=== PATIENT | male | born 2000 | race Two or more races ===

== ENCOUNTER 2023-08-15 17:17 | Inpatient (IN) | payer MEDICAID ==
[~2023-08-15] VITALS: Ht 180.3 cm; Wt 79.4 kg
[2023-08-15 17:28] VITALS: O2SAT 100
[2023-08-15 19:44] LABS: BASOPHILS % (AUTO) 0.3 % (0.0-2.0); EOSINOPHILS % (AUTO) 0.4 % (0.0-6.0); HEMATOCRIT 41 % (39-51); HEMOGLOBIN 14.3 g/dL (13.5-17.5); LYMPHOCYTES # (AUTO) 2.5 K/uL (0.8-4.8); LYMPHOCYTES % (AUTO) 25.8 % (20.0-44.0); MEAN CORPUSCULAR HEMOGLOBIN 30 PG (26.0-33.0); MEAN CORPUSCULAR HGB CONC 35 g/dl (31.0-36.0); MEAN CORPUSCULAR VOLUME 84 fL (80-96); MONOCYTES # (AUTO) 0.8 K/uL (0.1-1.30); MONOCYTES % (AUTO) 8.5 % (2.0-12.0); NEUTROPHILS # (AUTO) 6.2 K/uL (1.8-8.9); PLATELET COUNT (AUTO) 242 K/uL (150-450); RED BLOOD CELL COUNT(AUTO) 4.81 MIL/uL (4.5-6.0); WHITE BLOOD COUNT (AUTO) 9.6 K/uL (4.3-11.0)
[2023-08-15] MEDS ORDERED: IOHEXOL-300 100 ML VIAL IV ONE (19:56)
[2023-08-15] MEDS ORDERED: IV NS 0.9% 250 ML IV ONE (19:56)
[2023-08-15] MEDS ORDERED: CT SWABBABLE VALVE TRANS SET 1 EA INFUS.SET MC ONE (19:56)
[2023-08-15 20:03] LABS: CALCIUM, SERUM 8.9 mg/dL (8.5-10.1); POTASSIUM 3.4 mmol/L (3.5-5.1)
[2023-08-15] MEDS ORDERED: CEFEPIME 1 GM VIAL ONE (21:13)
[2023-08-15] MEDS ORDERED: IBUPROFEN 400 MG TABLET ONE (21:14)
[2023-08-15] MEDS ORDERED: VANCOMYCIN 1 GM /D5W 250 ML PB IV ONE (21:14)
[2023-08-15] MEDS: VANCOMYCIN 1 GM in IV D5W 250 ML IV ONE (21:21)
[2023-08-15] MEDS: IBUPROFEN 800 MG TABLET PO PRN (21:21)
[2023-08-15] MEDS: CEFEPIME 1 GM in IV D5W 50 ML IV ONE (21:21)
[2023-08-15] MEDS ORDERED: ZOLPIDEM TARTRATE 5 MG TABLET PO PRN (22:00)
[2023-08-15] MEDS ORDERED: ONDANSETRON HCL/PF 4 MG/2 ML VIAL IVP PRN (22:00)
[2023-08-15] MEDS ORDERED: CEFEPIME 1 GM in IV D5W 50 ML IV SCH (22:00)
[2023-08-15] MEDS ORDERED: MAG HYDROX/AL HYDROX/SIMETH 30 ML UDC PO PRN (22:00)
[2023-08-15] MEDS ORDERED: Z GUARD REMEDY 4 OZ OINT TP PRN (22:00)
[2023-08-15] MEDS ORDERED: MAGNESIUM HYDROXIDE 30 ML UDC PO PRN (22:00)
[2023-08-15 23:13] VITALS: BP 134/63; TEMP 98.4; O2SAT 99
[2023-08-16 06:25] LABS: BASOPHILS % (AUTO) 0.3 % (0.0-2.0); EOSINOPHILS # (AUTO) 0.1 K/uL (0.0-0.7); EOSINOPHILS % (AUTO) 0.9 % (0.0-6.0); HEMATOCRIT 42 % (39-51); HEMOGLOBIN 14.9 g/dL (13.5-17.5); LYMPHOCYTES # (AUTO) 2.4 K/uL (0.8-4.8); LYMPHOCYTES % (AUTO) 27.9 % (20.0-44.0); MEAN CORPUSCULAR HEMOGLOBIN 30 PG (26.0-33.0); MEAN CORPUSCULAR HGB CONC 36 g/dl (31.0-36.0); MEAN CORPUSCULAR VOLUME 84 fL (80-96); MONOCYTES # (AUTO) 0.8 K/uL (0.1-1.30); MONOCYTES % (AUTO) 8.8 % (2.0-12.0); NEUTROPHILS # (AUTO) 5.4 K/uL (1.8-8.9); NEUTROPHILS % (AUTO) 62.1 % (43.0-81.0); PLATELET COUNT (AUTO) 241 K/uL (150-450); RED BLOOD CELL COUNT(AUTO) 5.03 MIL/uL (4.5-6.0); RED CELL DISTRIBUTION WIDTH 13.7 % (11.5-15.0); WHITE BLOOD COUNT (AUTO) 8.6 K/uL (4.3-11.0)
[2023-08-16 06:44] LABS: CREATININE 0.9 mg/dL (0.6-1.3); MAGNESIUM 2.1 mg/dL (1.8-2.4); POTASSIUM 4.1 mmol/L (3.5-5.1)
[2023-08-16 08:00] VITALS: BP 122/71; TEMP 98.6; O2SAT 99
[2023-08-16] MEDS: VANCOMYCIN 1 GM in IV D5W 250ml IV SCH (09:08)
[2023-08-16] MEDS: CEFEPIME 2 GM in IV D5W 100 ML IV SCH (10:53)
[2023-08-16 16:00] VITALS: BP 121/65; TEMP 98.8; O2SAT 97
[2023-08-16 22:28] VITALS: BP 126/81; TEMP 98.1; O2SAT 99
[2023-08-17 07:04] LABS: CREATININE 1.1 mg/dL (0.6-1.3); POTASSIUM 3.7 mmol/L (3.5-5.1)
[2023-08-17 08:00] VITALS: BP 132/81; TEMP 98.6; O2SAT 99
[2023-08-17 12:20] LABS: INR 1.11 (0.91-1.10); PARTIAL THROMBOPLASTIN TIME 31.3 SEC (24.3-34.3); PROTHROMBIN TIME 11.7 SECS (9.2-11.1)
[2023-08-17 16:00] VITALS: BP 129/81; TEMP 98.8; O2SAT 100
[2023-08-17] MEDS: VANCOMYCIN 750 MG in IV D5W 250 ML IV SCH (16:16)
[2023-08-17 21:00] VITALS: BP 131/83; TEMP 97.9
[2023-08-18] MEDS ORDERED: LIDOCAINE HCL/MPF 1% 30 ML VIAL IJ ONE (06:27)
[2023-08-18] MEDS ORDERED: LIDOCAINE 1%-EPI 1:100,000 20 ML VIAL ONE (06:27)
[2023-08-18] MEDS ORDERED: BUPIVACAINE 0.5 % PF 150 MG/30 ML VIAL ONE (06:27)
[2023-08-18] MEDS ORDERED: LIDOCAINE 2%-EPI 1:100,000 30 ML VIAL ONE (06:27)
[2023-08-18] MEDS ORDERED: ANESTHESIA TRAY IN PYXIS 1 EA TRAY MC ONE (06:27)
[2023-08-18] MEDS ORDERED: FENTANYL PF 250MCG/5ML AMPUL ONE (07:05)
[2023-08-18] MEDS ORDERED: MIDAZOLAM HCL 2 MG/2ML VIAL ONE (07:06)
[2023-08-18 07:11] LABS: CALCIUM, SERUM 9.8 mg/dL (8.5-10.1); CREATININE 1.1 mg/dL (0.6-1.3); POTASSIUM 3.5 mmol/L (3.5-5.1)
[2023-08-18 08:00] VITALS: BP 150/82; TEMP 98.2; O2SAT 96
[2023-08-18] MEDS ORDERED: VANCOMYCIN 1 GM VIAL ONE (08:10)
[2023-08-18] MEDS ORDERED: BACITRACIN ZINC OINT (15 GM) 15 GM TUBE TP ONE (08:13)
[2023-08-18] MEDS: HYDROCODONE/APAP 10/325MG TABLET PO PRN (12:08)
[2023-08-18 16:00] VITALS: BP 128/85; TEMP 98.6; O2SAT 100
[2023-08-18 20:59] VITALS: BP 124/85; TEMP 98.6; O2SAT 99
[2023-08-19 06:41] LABS: CALCIUM, SERUM 8.7 mg/dL (8.5-10.1); POTASSIUM 3.4 mmol/L (3.5-5.1)
[2023-08-19 08:00] VITALS: BP 119/77; TEMP 98.6; O2SAT 100
[2023-08-19] MEDS: POTASSIUM CHLORIDE 20 MEQ TAB.PRT.SR PO ONE (10:24)
[2023-08-19] MEDS: ACETAMINOPHEN 325 MG TABLET PO PRN (15:01)
[2023-08-19 16:00] VITALS: BP 122/80; TEMP 97.5; O2SAT 98
[2023-08-19] MEDS ORDERED: SULF1TAB48 PO (16:02)
[2023-08-19] MEDS ORDERED: IBUP800T54 PO (16:02)
== END 2023-08-19 18:25 | disposition home or self-care (01) | DRG 364 ==
LOC: ER 17:24 → MED 21:07
PROVIDERS: ADMIT Nurse Practitioner Acute Care; ATTEND Nurse Practitioner Acute Care
PROC: 0JCR0ZZ Extirpation of Matter from Left Foot Subcutaneous Tissue and Fascia, Open Approach (ICD-10-PCS; principal; 2023-08-18)
PROC: 0J9R0ZZ Drainage of Left Foot Subcutaneous Tissue and Fascia, Open Approach (ICD-10-PCS; principal; 2023-08-18)
DX: L02.416 Cutaneous abscess of left lower limb (principal); E87.6 Hypokalemia; L03.116 Cellulitis of left lower limb; S91.0 Open wound of ankle; W33.0 Accidental rifle, shotgun and larger firearm discharge
CPT/HCPCS: 36415; 73610-TC; 73701-TC; 80048-TC; 80202-TC; 83735-TC; 84100-TC; 85025-TC; 85610-TC; 85730-TC; 86850-TC; A4223; A6402; G0378; J0690; J0692; J1100; J2250; J2405; J2704; J3010; J3370; J3371; J3490; J7030; J7050; J7060; Q9967